=== PATIENT | female | born 1995 | race Caucasian/White ===

== ENCOUNTER 2020-12-31 18:40 | Emergency (ER) | payer SELFPAY ==
[~2020-12-31] VITALS: Ht 157.5 cm; Wt 46.7 kg
--- NOTE | 2020-12-31 18:49 | PHYS DOC ---
Adult General HPI HPI Patient is a 25-year-old female with an endorse past medical history for anxiety and depression who presents to emergency department with family at their request for a chief complaint of needing psych evaluation. Per family, she has been acting strange, seems anxious and depressed has been stealing things at home, a nd showing up with money that is not hers and they are not sure how because she does not have a job. Patient states that she has had a rough time, and needs to get back home to her home town in [place]. Denies any recent traumas, illnesses, travel, fevers, chest pain or shortness of breath, abdominal pain, nausea, vomiting, dysuria, hematuria, blood in the stool. Denies any alcohol or drug use. Denies any history of suicidal ideation, homicidal ideation, hallucinations. Physical Exam Physical Exam Constitutional: Well developed, well nourished, no acute distress, non-toxic appearance. [] HENT: Normocephalic, atraumatic, bilateral external ears normal, oropharynx moist, no oral exudates, nose normal. [] Eyes: conjunctiva normal, no discharge. [] Neck: Normal range of motion, no tenderness, supple, no stridor. [] Cardiovascular: Sinus tachycardia Lungs & Thorax: Bilateral breath sounds clear to auscultation [] Abdomen: soft, no tenderness, no masses, no pulsatile masses. [] Skin: Warm, dry, no erythema, no rash. [] Extremities: No tenderness, ROM intact, no edema. [] Neurologic: Alert and oriented X 3, normal motor function, normal sensory function, able to sit, stand and walk without issue, no focal deficits noted. [] Psychologic: Affect normal, mood anxious, no suicidal ideation, no homicidal ideation, no hallucinations. [] EKG EKG [] Radiology/Procedures Radiology/Procedures [] Heart Score C/O Chest Pain: No Risk Factors: Risk Factors: DM, Current or recent (<one month) smoker, HTN, HLP, family history of CAD, obesity. Risk Scores: Risk Factors: DM, Current or recent (<one month) smoker, HTN, HLP, family history of CAD, obesity. Course & Med Decision Making Course & Med Decision Making Patient is a 25-year-old female who presents to the emergency department with family for chief complaint of wanting psych evaluation as she is anxious and depressed Vital signs notable for sinus tachycardia. Physical exam noted above. Psychiatric assessment team evaluated patient and felt she indeed was not SI, HI or hallucinating. [place] that she was safe to be discharged home with some local resources. Patient given safety plan, and local resources and advised to call first thing in the morning to start setting up follow-up appointments with primary cares and at the [facility]. Patient verbalized understanding, and agreed with plan of discharge. [] Dragon Disclaimer Dragon Disclaimer This electronic medical record was generated, in whole or in part, using a voice recognition dictation system. Departure Departure: Impression: Primary Impression: Anxiety Disposition: HOME / SELF CARE / HOMELESS Condition: STABLE Referrals: [facility] Patient Instructions: Anxiety and Panic Attacks, Depression, Adult Additional Instructions: Thank you for coming into the emergency department tonight and allowing us to take care of you. Please read all of the attached information very carefully to go back over what we discussed and what you discussed with our psychiatric liaison. You are given a discharge safety plan and resources for mental health. Please call both your primary care physician first thing in the morning and be gin calling around at the numbers provided to establish care for continued help with anxiety and depression. You are also given the crisis hotline number that she could call 24 hours a day, and of course to emergency department is open 24 hours a day as we discussed and is here if you have any new or concerning symptoms. Please come back to the ED with any of these. GUILLERMO MARQUES MD Dec 31, 2020 18:49
[2020-12-31 18:50] VITALS: BP 119/85
== END 2020-12-31 20:23 | disposition home or self-care (01) ==
LOC: ER 18:40
DX: F41.9 Anxiety disorder, unspecified (principal); F32.9 Major depressive disorder, single episode, unspecified
CPT/HCPCS: 99282